=== PATIENT | female | born 2000 | race Hispanic/Latino ===

== ENCOUNTER 2022-09-13 07:38 | Emergency (ER) | payer OTHER, SELFPAY ==
[2022-09-13] MEDS ORDERED: Morphine 4 MG/ML VIAL ONE (08:04)
[2022-09-13] MEDS ORDERED: Ondansetron PF 4 MG/2 ML Vial ONE (08:04)
== END 2022-09-13 09:00 | disposition home or self-care (01) ==
LOC: ERS 07:38
DX: S16.1XXA Strain of muscle, fascia and tendon at neck level, initial encounter (principal); S09.90XA Unspecified injury of head, initial encounter; V49.9XXA Car occupant (driver) (passenger) injured in unspecified traffic accident, initial encounter
CPT/HCPCS: 70450; 72125; 96374; 96375; J2270; J2405